=== PATIENT | female | born 1975 | race Caucasian/White ===

== ENCOUNTER 2016-09-04 23:06 | Emergency (ER) | payer MEDICAID ==
[2016-09-05] MEDS ORDERED: LIDOCAINE 1% MDV 20 ML ONE (00:10)
[2016-09-05] MEDS ORDERED: CEFTRIAXONE 1 GM VIAL ONE (00:10)
[2016-09-05] MEDS ORDERED: KETOROLAC 60 MG/2 ML VIAL IM ONE (00:10)
== END 2016-09-05 00:52 | disposition home or self-care (01) ==
LOC: ER 23:06
DX: N30.91 Cystitis, unspecified with hematuria (principal); F17.210 Nicotine dependence, cigarettes, uncomplicated
CPT/HCPCS: 81001; 87088; 96372